=== PATIENT | male | born 1945 | race Caucasian/White ===

== ENCOUNTER 2017-12-25 08:41 | Day surgery (SDC) | payer OTHER, MEDICARE ==
[2017-12-25] VITALS (12 sets, daily range): BP systolic 114–125; BP diastolic 58–70
[~2017-12-25 08:41] MED LIST: LIDOcaine 1% (10mg/ml)w/preservative injection 20ml MDV SQ ONE
[2017-12-25] MEDS ORDERED: ONDA8TAB13 PO (09:28)
[2017-12-25] MEDS ORDERED: ASPI-1071 PO (09:28)
[2017-12-25] MEDS ORDERED: MULT-1141 PO (09:28)
[2017-12-25] MEDS ORDERED: DEXA4TAB PO (09:28)
[2017-12-25] MEDS ORDERED: LORA10TA7 PO (09:28)
[2017-12-25] MEDS ORDERED: ATOR20TA PO (09:28)
[2017-12-25] MEDS ORDERED: CHOL200013 (09:28)
[2017-12-25] MEDS ORDERED: FOL0.4T PO (09:28)
[2017-12-25] MEDS ORDERED: [UNRECOGNIZED DRUG - CODE] (09:53)
[2017-12-25] MEDS ORDERED: MORP30TA PO (09:53)
[2017-12-25] MEDS ORDERED: CYAN10006 IM (09:53)
[2017-12-25] MEDS ORDERED: PEMB100V (09:53)
[2017-12-25] MEDS ORDERED: CARB150V9 (09:53)
[2017-12-25] MEDS ORDERED: ACET325C PO (09:53)
[2017-12-25] MEDS ORDERED: NAPR220T67 PO (09:53)
== END 2017-12-25 09:45 | disposition home or self-care (01) ==
LOC: SSTAY O 08:41
PROVIDERS: ATTEND Radiology Diagnostic Radiology
DX: J90 Pleural effusion, not elsewhere classified (principal); E78.5 Hyperlipidemia, unspecified; Z85.118 Personal history of other malignant neoplasm of bronchus and lung
CPT/HCPCS: 32555; 71045; J2001

== ENCOUNTER → 2018-01-04 | Day surgery (SDC) | payer OTHER, MEDICARE ==
[~2018-01-04] VITALS: Ht 170.2 cm; Wt 71.3 kg
[~2018-01-04] MED LIST changes: +ACET325C PO; +ASPI-1071 PO; +ATOR20TA PO; +CARB150V9; +CHOL200013; +CYAN10006 IM; +DEXA4TAB PO; +FOL0.4T PO; +LORA10TA7 PO; +MORP30TA PO; +MULT-1141 PO; +NAPR220T67 PO; +ONDA8TAB13 PO; +PEMB100V; +[UNRECOGNIZED DRUG - CODE]
[2018-01-04 09:08] VITALS: BP 116/61
== END | disposition home or self-care (01) ==
LOC: SSTAY O 08:08
PROVIDERS: ATTEND Radiology Diagnostic Radiology
DX: J90 Pleural effusion, not elsewhere classified (principal); E78.5 Hyperlipidemia, unspecified; J44.9 Chronic obstructive pulmonary disease, unspecified; M19.90 Unspecified osteoarthritis, unspecified site; Z72.89 Other problems related to lifestyle; Z98.52 Vasectomy status; Z92.21 Personal history of antineoplastic chemotherapy; Z79.82 Long term (current) use of aspirin; Z85.118 Personal history of other malignant neoplasm of bronchus and lung; Z79.891 Long term (current) use of opiate analgesic; Z79.899 Other long term (current) drug therapy; Z98.890 Other specified postprocedural states
CPT/HCPCS: 32555; 71045; J2001

== ENCOUNTER 2018-01-23 08:03 | Day surgery (SDC) | payer OTHER, MEDICARE ==
[~2018-01-23] VITALS: Ht 170.2 cm; Wt 69.8 kg
[~2018-01-23 08:03] MED LIST changes: -LIDOcaine 1% (10mg/ml)w/preservative injection 20ml MDV SQ ONE; -MORP30TA PO
[2018-01-23 08:20] VITALS: BP 113/64
[2018-01-23] MEDS ORDERED: SILO8CAP2 PO (08:32)
[2018-01-23] MEDS ORDERED: LIDOcaine 1% 30ml preserv. free vial SQ ONE (09:00)
[2018-01-23 09:10] VITALS: BP 113/64
[2018-01-23 09:16] VITALS: BP 122/69
[2018-01-23 09:29] VITALS: BP 126/67
== END 2018-01-23 09:35 | disposition home or self-care (01) ==
LOC: SSTAY O 08:03
PROVIDERS: ATTEND Radiology Diagnostic Radiology
DX: J90 Pleural effusion, not elsewhere classified (principal); E78.5 Hyperlipidemia, unspecified; J44.9 Chronic obstructive pulmonary disease, unspecified; M19.90 Unspecified osteoarthritis, unspecified site; Z72.89 Other problems related to lifestyle; Z87.891 Personal history of nicotine dependence; Z98.52 Vasectomy status; Z87.09 Personal history of other diseases of the respiratory system; Z92.21 Personal history of antineoplastic chemotherapy; Z79.891 Long term (current) use of opiate analgesic; Z79.82 Long term (current) use of aspirin; Z85.118 Personal history of other malignant neoplasm of bronchus and lung; Z98.890 Other specified postprocedural states; Z79.899 Other long term (current) drug therapy
CPT/HCPCS: 32555; 71045; J3490

== ENCOUNTER 2018-02-05 07:41 | Day surgery (SDC) | payer OTHER, MEDICARE ==
[~2018-02-05] VITALS: Ht 170.2 cm; Wt 67.2 kg
[~2018-02-05 07:41] MED LIST changes: +SILO8CAP2 PO
[2018-02-05 08:03] VITALS: BP 101/52
[2018-02-05 08:35] VITALS: BP 119/71
[2018-02-05] MEDS ORDERED: LIDOcaine 1% 30ml preserv. free vial SQ ONE (09:00)
== END 2018-02-05 08:48 | disposition home or self-care (01) ==
LOC: SSTAY O 07:41
PROVIDERS: ATTEND Radiology Vascular & Interventional Radiology
DX: J90 Pleural effusion, not elsewhere classified (principal); Z85.118 Personal history of other malignant neoplasm of bronchus and lung; E78.5 Hyperlipidemia, unspecified; J44.9 Chronic obstructive pulmonary disease, unspecified; M19.90 Unspecified osteoarthritis, unspecified site; Z72.89 Other problems related to lifestyle; Z92.21 Personal history of antineoplastic chemotherapy; Z79.891 Long term (current) use of opiate analgesic; Z79.82 Long term (current) use of aspirin; Z87.891 Personal history of nicotine dependence; Z98.52 Vasectomy status; Z79.899 Other long term (current) drug therapy; Z98.890 Other specified postprocedural states
CPT/HCPCS: 32555; 71045; J3490

== ENCOUNTER 2018-02-15 07:17 | Day surgery (SDC) | payer OTHER, MEDICARE ==
[2018-02-15] VITALS (9 sets, daily range): BP systolic 103–124; BP diastolic 57–70
[~2018-02-15] VITALS: Ht 170.2 cm; Wt 66.8 kg
[~2018-02-15 07:17] MED LIST changes: -CARB150V9; -DEXA4TAB PO; +LIDOcaine 1% 30ml preserv. free vial SQ STA; -ONDA8TAB13 PO; -[UNRECOGNIZED DRUG - CODE]
== END 2018-02-15 08:50 | disposition home or self-care (01) ==
LOC: SSTAY O 07:17
PROVIDERS: ATTEND Radiology Diagnostic Radiology
DX: J90 Pleural effusion, not elsewhere classified (principal); E78.5 Hyperlipidemia, unspecified; J44.9 Chronic obstructive pulmonary disease, unspecified; Z87.891 Personal history of nicotine dependence; Z72.89 Other problems related to lifestyle; Z98.52 Vasectomy status; Z85.118 Personal history of other malignant neoplasm of bronchus and lung; Z92.21 Personal history of antineoplastic chemotherapy; Z79.891 Long term (current) use of opiate analgesic; Z79.82 Long term (current) use of aspirin; Z98.890 Other specified postprocedural states; Z79.899 Other long term (current) drug therapy
CPT/HCPCS: 32555; 71045; J3490

== ENCOUNTER 2018-03-08 08:02 | Day surgery (SDC) | payer OTHER, MEDICARE ==
[2018-03-08] VITALS (8 sets, daily range): BP systolic 120–124; BP diastolic 65–70
[~2018-03-08] VITALS: Ht 170.2 cm; Wt 64.0 kg
[~2018-03-08 08:02] MED LIST changes: -ACET325C PO; +ACET325C3 PO
[2018-03-08] MEDS ORDERED: POLY17PO10 PO (08:35)
[2018-03-08] MEDS ORDERED: DEC4T PO (08:35)
[2018-03-08] MEDS ORDERED: AZIT-63 PO (08:35)
[2018-03-08] MEDS ORDERED: PROC10TA10 PO (08:35)
[2018-03-08] MEDS ORDERED: HYDR-3965 PO (08:35)
[2018-03-08] MEDS ORDERED: GUAI600T89 PO (08:35)
== END 2018-03-08 09:30 | disposition home or self-care (01) ==
LOC: SSTAY O 08:02
PROVIDERS: ATTEND Radiology Diagnostic Radiology
DX: J90 Pleural effusion, not elsewhere classified (principal); E78.5 Hyperlipidemia, unspecified; J44.9 Chronic obstructive pulmonary disease, unspecified; M19.90 Unspecified osteoarthritis, unspecified site; Z72.89 Other problems related to lifestyle; Z87.891 Personal history of nicotine dependence; Z87.09 Personal history of other diseases of the respiratory system; Z98.52 Vasectomy status; Z79.82 Long term (current) use of aspirin; Z85.118 Personal history of other malignant neoplasm of bronchus and lung; Z79.2 Long term (current) use of antibiotics; Z79.891 Long term (current) use of opiate analgesic; Z92.21 Personal history of antineoplastic chemotherapy; Z79.899 Other long term (current) drug therapy; Z98.890 Other specified postprocedural states
CPT/HCPCS: 32555; 71045; J3490

== ENCOUNTER 2018-03-16 07:39 | Day surgery (SDC) | payer OTHER, MEDICARE ==
[2018-03-16] VITALS (8 sets, daily range): BP systolic 100–113; BP diastolic 53–63
[~2018-03-16] VITALS: Ht 170.2 cm; Wt 61.7 kg
[~2018-03-16 07:39] MED LIST changes: -ACET325C3 PO; +AZIT-63 PO; +DEC4T PO; +GUAI600T89 PO; +HYDR-3965 PO; +POLY17PO10 PO; +PROC10TA10 PO
== END 2018-03-16 09:30 | disposition home or self-care (01) ==
LOC: SSTAY O 07:39
PROVIDERS: ATTEND Radiology Diagnostic Radiology
DX: J90 Pleural effusion, not elsewhere classified (principal); J44.9 Chronic obstructive pulmonary disease, unspecified; M19.90 Unspecified osteoarthritis, unspecified site; Z72.89 Other problems related to lifestyle; Z98.52 Vasectomy status; Z92.21 Personal history of antineoplastic chemotherapy; Z85.118 Personal history of other malignant neoplasm of bronchus and lung; Z79.891 Long term (current) use of opiate analgesic; Z79.82 Long term (current) use of aspirin; Z87.891 Personal history of nicotine dependence; Z98.890 Other specified postprocedural states; Z79.899 Other long term (current) drug therapy
CPT/HCPCS: 32555; 71045; J3490

== ENCOUNTER 2018-04-04 08:01 | Day surgery (SDC) | payer OTHER, MEDICARE ==
[~2018-04-04 08:01] MED LIST changes: -AZIT-63 PO; -FOL0.4T PO; +FOLI0.4T14 PO; -LIDOcaine 1% 30ml preserv. free vial SQ STA
[2018-04-04 08:14] VITALS: BP 109/62
[2018-04-04] MEDS ORDERED: AMOXICILLIN PO (08:31)
[2018-04-04] MEDS ORDERED: prednisone PO (08:31)
[2018-04-04] MEDS ORDERED: POLY17PO10 PO (08:31)
[2018-04-04] MEDS ORDERED: ALB0.5UD IH (08:31)
[2018-04-04] MEDS ORDERED: LEVO25TA7 PO (08:31)
[2018-04-04] MEDS ORDERED: CLAVULANATE PO (08:31)
[2018-04-04] MEDS ORDERED: FENT1PAT12 TOP (08:31)
[2018-04-04] MEDS ORDERED: LIDOcaine 1% 30ml preserv. free vial SQ ONE (09:00)
[2018-04-04 09:45] VITALS: BP 123/63
== END 2018-04-04 10:05 | disposition home or self-care (01) ==
LOC: SSTAY O 08:01
PROVIDERS: ATTEND Radiology Diagnostic Radiology
DX: J90 Pleural effusion, not elsewhere classified (principal); E78.5 Hyperlipidemia, unspecified; J44.9 Chronic obstructive pulmonary disease, unspecified; M19.90 Unspecified osteoarthritis, unspecified site; Z72.89 Other problems related to lifestyle; Z87.891 Personal history of nicotine dependence; Z98.52 Vasectomy status; Z92.21 Personal history of antineoplastic chemotherapy; Z79.891 Long term (current) use of opiate analgesic; Z85.118 Personal history of other malignant neoplasm of bronchus and lung; Z98.890 Other specified postprocedural states; Z79.899 Other long term (current) drug therapy
CPT/HCPCS: 32555; 71045; J3490

== ENCOUNTER 2018-05-18 10:12 | Day surgery (SDC) | payer OTHER, MEDICARE ==
[~2018-05-18] VITALS: Ht 167.6 cm; Wt 57.7 kg
[~2018-05-18 10:12] MED LIST changes: +ALB0.5UD IH; +AMOXICILLIN PO; -ASPI-1071 PO; -CHOL200013; +CLAVULANATE PO; -CYAN10006 IM; -DEC4T PO; +FENT1PAT12 TOP; -FOLI0.4T14 PO; -GUAI600T89 PO; +LEVO25TA7 PO; +LIDOcaine 1% 30ml preserv. free vial SQ STA; -LORA10TA7 PO; -MULT-1141 PO; -PEMB100V; +prednisone PO
[2018-05-18 10:40] VITALS: BP 119/68
[2018-05-18 10:48] VITALS: BP 119/68
[2018-05-18 10:58] VITALS: BP 117/78
[2018-05-18 11:00] VITALS: BP 110/64
[2018-05-18 11:16] VITALS: BP 110/64
== END 2018-05-18 11:30 | disposition home or self-care (01) ==
LOC: SSTAY O 10:12
PROVIDERS: ATTEND Radiology Diagnostic Radiology
DX: J90 Pleural effusion, not elsewhere classified (principal); E78.5 Hyperlipidemia, unspecified; J44.9 Chronic obstructive pulmonary disease, unspecified; Z85.118 Personal history of other malignant neoplasm of bronchus and lung; Z92.21 Personal history of antineoplastic chemotherapy; Z79.899 Other long term (current) drug therapy; Z98.890 Other specified postprocedural states
CPT/HCPCS: 32555; 71045; J3490

== ENCOUNTER 2018-05-29 08:32 | Day surgery (SDC) | payer OTHER, MEDICARE ==
[~2018-05-29] VITALS: Ht 167.6 cm; Wt 55.7 kg
[2018-05-29 08:56] VITALS: BP 106/78
[2018-05-29] MEDS ORDERED: METO-292 PO (09:10)
[2018-05-29] MEDS ORDERED: GABA100C PO (09:10)
[2018-05-29] MEDS ORDERED: NALO12.5 (09:10)
[2018-05-29 09:20] VITALS: BP 106/78
[2018-05-29 09:36] VITALS: BP 112/68
[2018-05-29 09:44] VITALS: BP 123/75
[2018-05-29] MEDS ORDERED: ENOX40SY7 SUBCUT (10:08)
== END 2018-05-29 09:50 | disposition home or self-care (01) ==
LOC: SSTAY O 08:32
PROVIDERS: ATTEND Radiology Vascular & Interventional Radiology
DX: J90 Pleural effusion, not elsewhere classified (principal); E78.5 Hyperlipidemia, unspecified; C34.90 Malignant neoplasm of unspecified part of unspecified bronchus or lung; Z79.899 Other long term (current) drug therapy
CPT/HCPCS: 32555; 71045; C1729; J3490

== ENCOUNTER 2018-06-07 08:53 | Day surgery (SDC) | payer OTHER, MEDICARE ==
[~2018-06-07] VITALS: Ht 167.6 cm; Wt 54.0 kg
[~2018-06-07 08:53] MED LIST changes: +ENOX40SY7 SUBCUT; +GABA100C PO; -LIDOcaine 1% 30ml preserv. free vial SQ STA; +METO-292 PO; +NALO12.5; -NAPR220T67 PO
[2018-06-07] MEDS ORDERED: LIDOcaine 1% 30ml preserv. free vial SQ ONE (09:30)
[2018-06-07 10:07] VITALS: BP 117/65
[2018-06-07] MEDS ORDERED: APIX5TAB3 PO (10:32)
== END 2018-06-07 11:15 | disposition home or self-care (01) ==
LOC: SSTAY O 08:53
PROVIDERS: ATTEND Radiology Diagnostic Radiology
DX: J90 Pleural effusion, not elsewhere classified (principal); E78.5 Hyperlipidemia, unspecified; C34.90 Malignant neoplasm of unspecified part of unspecified bronchus or lung; Z79.899 Other long term (current) drug therapy
CPT/HCPCS: 32555; 71045; C1729; J3490

== ENCOUNTER 2018-07-06 09:13 | Day surgery (SDC) | payer OTHER, MEDICARE ==
[2018-07-06] VITALS (7 sets, daily range): BP systolic 94–120; BP diastolic 63–80
[~2018-07-06] VITALS: Ht 167.6 cm; Wt 49.3 kg
[~2018-07-06 09:13] MED LIST changes: -AMOXICILLIN PO; +APIX5TAB3 PO; -CLAVULANATE PO; -ENOX40SY7 SUBCUT; -PROC10TA10 PO
[2018-07-06] MEDS ORDERED: DOCU-28 PO (09:50)
[2018-07-06] MEDS ORDERED: BISA-155 PO (09:50)
[2018-07-06] MEDS ORDERED: LIDOcaine 1% 30ml preserv. free vial SQ ONE (10:00)
[2018-07-06 11:29] LABS: LYMPHOCYTES,BODY FLUID 54 %; MONOCYTES,BODY FLUID 40 %; NEUTROPHILS,BODY FLUID 6 %
[2018-07-06 11:31] LABS: BF MESOTHELIAL CELLS MANY; BF RBC COUNT 3706 /CU MM; BF WBC COUNT 2570 /CU MM (0-1000); BFAPPEAR HAZY; BFCOLOR YELLOW; BFVOLUME 55 ML
== END 2018-07-06 10:50 | disposition home or self-care (01) ==
LOC: SSTAY O 09:13
PROVIDERS: ATTEND Radiology Vascular & Interventional Radiology
DX: R18.8 Other ascites (principal); J90 Pleural effusion, not elsewhere classified; E78.5 Hyperlipidemia, unspecified; C34.90 Malignant neoplasm of unspecified part of unspecified bronchus or lung; Z79.899 Other long term (current) drug therapy
CPT/HCPCS: 32555; 49083; 71045; 87070; 89051; C1729; J3490